=== PATIENT | female | born 1950 | race Two or more races ===

== ENCOUNTER → 2021-08-11 08:00 | Outpatient (CLI) | payer OTHER ==
[~2021-08-11 08:00] MED LIST: CARDURA PO; CARVEDILOL12.5 MG PO; CHILDREN'S ASPI81 MG PO; COZAAR100 MG PO; MACROBID 100 M100 MG PO; NIFE60TA3 PO; PROCARDI PO; SYNTHROID125 MCG PO; SYNTHROID137 MCG; ULTRACET PO
== END | disposition home or self-care (01) ==
LOC: LAB 08:00 → ADM 09:30 → CIR.AMB 08-18 08:45 → EDSTATUS 08-18 09:30
PROVIDERS: ATTEND Obstetrics & Gynecology Gynecology
DX: U07.1 COVID-19 (principal); R07.89 Other chest pain; Z01.810 Encounter for preprocedural cardiovascular examination; Z01.811 Encounter for preprocedural respiratory examination

== ENCOUNTER 2021-09-15 07:07 | Day surgery (SDC) | payer OTHER ==
[~2021-09-15 07:07] MED LIST changes: -MACROBID 100 M100 MG PO; -ULTRACET PO
[2021-09-15] MEDS ORDERED: ULTRACET PO (12:49)
[2021-09-15] MEDS ORDERED: MACROBID 100 M100 MG PO (12:50)
== END 2021-09-15 17:40 | disposition home or self-care (01) ==
LOC: CIR.AMB 07:07
PROVIDERS: ATTEND Obstetrics & Gynecology Gynecology
DX: N81.6 Rectocele (principal); N81.5 Vaginal enterocele; Z20.822 Contact with and (suspected) exposure to COVID-19